=== PATIENT | female | born 1980 | race Two or more races ===

== ENCOUNTER 2021-03-22 18:55 | Emergency (ER) | payer SELFPAY ==
[~2021-03-22] VITALS: Ht 172.7 cm; Wt 83.9 kg
--- NOTE | 2021-03-22 19:03 | NUR ---
DR PEPE AT BEDSIDE
--- NOTE | 2021-03-22 19:06 | NUR ---
BIBRA 80 C/O NAUSEA AFTER EATING CHIPOTLE. DENIES PAIN. IN ROOM AIR AND DENIES SOB. RESPIRATION REGULAR AND UNLABORED. WILL CONTINUE TO MONITOR THE PATIENT.
[2021-03-22 19:30] VITALS: BP 140/80
[2021-03-22] MEDS ORDERED: IV NS 0.9% 1,000 ML BAG IV ONE (19:30)
[2021-03-22] MEDS ORDERED: ONDANSETRON HCL/PF 4 MG/2 ML VIAL IVP ONE (19:30)
--- NOTE | 2021-03-22 19:30 | NUR ---
Patient discharged to home in stable condition. Written and verbal after care instructions given. Patient verbalizes understanding of instruction.
== END 2021-03-22 19:30 | disposition home or self-care (01) ==
LOC: ER 18:56
DX: T78.1XXA Other adverse food reactions, not elsewhere classified, initial encounter (principal); R11.2 Nausea with vomiting, unspecified; R10.9 Unspecified abdominal pain; X58.XXXA Exposure to other specified factors, initial encounter